=== PATIENT | male | born 1980 ===

== ENCOUNTER 2016-05-06 21:26 | Emergency (ER) | payer OTHER ==
[2016-05-06 21:37] VITALS: TEMP 98.3
[2016-05-06] MEDS ORDERED: Sodium Chloride 0.9% 1,000 ML IV ONE (21:48)
--- NOTE | 2016-05-06 21:51 | C.PDOC ---
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 the pt says he has had cough and congestion for the last few days and was feeling hot at dinner- his son took his temp and it was 100.6. his says he was sitting at the table and was very sweaty and then he had an episode of full body shaking for 30 sec to a minute and slumped against the wall. after the shaking was over he was confused at first until ems arrived then he slowly improved and now is back to normal. he denies any pmh, denies illicit drugs, drinks etoh rarely. denies meds. nkda. Time Seen by Provider: 05/06/16 21:37 Chief Complaint (Nursing): Syncope Past Medical History Vital Signs: Last Vital Signs Temp 98.3 F 05/06/16 21:33 Pulse 60 05/06/16 21:33 Resp 16 05/06/16 21:33 BP 121/56 L 05/06/16 21:33 Pulse Ox 97 05/06/16 22:49 Family History: States: Diabetes - Social History Hx Alcohol Use: No Hx Substance Use: No - Immunization History Hx Tetanus Toxoid Vaccination: No Hx Influenza Vaccination: No Hx Pneumococcal Vaccination: No Review Of Systems Constitutional: Positive for: Fever, Malaise Eyes: Negative for: Vision Change Cardiovascular: Negative for: Chest Pain Respiratory: Positive for: Cough. Negative for: Shortness of Breath, Hemoptysis Gastrointestinal: Negative for: Nausea, Vomiting, Abdominal Pain, Diarrhea Neurological: Negative for: Weakness, Numbness, Headache Physical Exam - Physical Exam Appears: Non-toxic, No Acute Distress Skin: Warm, Dry Head: Atraumatic Eye(s): bilateral: PERRL, EOMI Oral Mucosa: Moist Tongue: No Swelling, No Laceration Lips: No Swelling Neck: Normal ROM Cardiovascular: Rhythm Regular, No Murmur Respiratory: No Decreased Breath Sounds, No Accessory Muscle Use, No Rales, No Rhonchi, No Wheezing Gastrointestinal/Abdominal: Soft, No Tenderness Extremity: No Swelling Pulses: Left Radial: Normal, Right Radial: Normal Neurological/Psych: Oriented x3, Normal Cranial Nerves, No Cerebellar Signs, Normal Motor, Normal Sensation, Other (no focal deficits) ED Course And Treatment - Laboratory Results Result Diagrams: 05/06/16 21:58 05/06/16 21:58 O2 Sat by Pulse Oximetry: 97 Medical Decision Making Medical Decision Making: the pt remained free of any seizure in the ED. he was ambulatory with steady gait, normal neuro exam, neg head CT. he is comfortable w plan for dc and understands he needs to f/u on sunday w a primary doctor and with a neurologist as soon as possible. he understands he should not drive until cleared by neurology. Disposition - Disposition Referrals: Reynaldo Gross MD [Staff Provider] - Disposition: HOME/ ROUTINE Disposition Time: 22:48 Condition: STABLE Additional Instructions: Please follow up with your doctor on Sunday and with a neurologist as soon as possible. Do not drive until your are cleared by a neurologist. Do not do any activites that may result in injury if you have another seizure, such as climbing ladders or swimming alone. Return to the ER for any worsening symptoms or for any other concerns. Instructions: Influenza (ED), New-Onset Seizure in Adults (ED) Forms: Work Excuse - Clinical Impression Clinical Impression: Influenza B, Seizure-like activity
[2016-05-06 22:01] LABS: BASO % 0.5 % (0.0-2.0); EOS % 0.8 % (0.0-4.0); HEMATOCRIT 40.1 % (35.0-51.0); LYMPH # 1.1 K/uL (1.0-4.3); LYMPH % 21.4 % (20.0-40.0); MEAN CELL VOLUME 83.1 fL (80.0-94.0); MEAN CORPUSCULAR HEMOGLOBIN 28.3 pg (27.0-31.0); MEAN PLATELET VOLUME 6.9 fL (7.2-11.7); MONO # 0.5 K/uL (0.0-0.8); MONO % 10.5 % (0.0-10.0); RED CELL DISTRIBUTION WIDTH 12.2 % (11.5-14.5)
[2016-05-06 22:09] LABS: CHLORIDE 99 mmol/L (98-107); POTASSIUM 3.7 mmol/L (3.6-5.2); SODIUM 134 mmol/L (132-148)
[2016-05-06 22:11] LABS: BILIRUBIN,TOTAL 0.3 mg/dL (0.2-1.3); GFR AFRICAN-AMERICAN > 60
[2016-05-06 22:12] LABS: ALB/GLOB RATIO 1.4 (1.0-2.1); ALKALINE PHOSPHATASE 55 U/L (38-126); ALT/SGPT 21 U/L (21-72); AST/SGOT 20 U/L (17-59); BLOOD UREA NITROGEN 8 mg/dL (9-20); CARBON DIOXIDE 23 mmol/L (22-30); GLUCOSE,RANDOM 173 mg/dL (75-110); TOTAL PROTEIN 5.9 g/dL (6.3-8.3)
[2016-05-06 22:13] LABS: CALCIUM 6.9 mg/dl (8.6-10.4)
[2016-05-06 22:36] LABS: RBC URINE < 1 /hpf (0-3); URINE BACTERIA RARE (<OCC); URINE BILIRUBIN NEGATIVE (NEGATIVE); URINE BLOOD NEGATIVE (NEGATIVE); URINE COLOR Yellow (YELLOW); URINE GLUCOSE (UA) 1+ mg/dL (Normal); URINE KETONE TRACE mg/dL (NEGATIVE); URINE LEUKOCYTE ESTERASE NEG Leu/uL (Negative); URINE PROTEIN 1+ mg/dL (NEGATIVE); WBC URINE 8 /hpf (0-5)
[2016-05-07 00:16] VITALS: BP 126/80; PULSE 74; RESP 20; O2SAT 100
--- NOTE | 2016-05-07 08:41 | CT ---
PROCEDURE: CT HEAD WITHOUT CONTRAST. HISTORY: seizure COMPARISON: None available. TECHNIQUE: Axial computed tomography images were obtained through the head/brain without intravenous contrast. Radiation dose: Total exam DLP = 913.34 mGy-cm. FINDINGS: HEMORRHAGE: No intracranial hemorrhage. BRAIN: No mass effect or edema. No atrophy or chronic microvascular ischemic changes. VENTRICLES: Unremarkable. No hydrocephalus. CALVARIUM: Unremarkable. PARANASAL SINUSES: Chronic ethmoid sinusitis MASTOID AIR CELLS: Unremarkable as visualized. No inflammatory changes. OTHER FINDINGS: None. IMPRESSION: No intracranial mass, hemorrhage or evidence of acute infarct. Chronic ethmoid sinusitis noted. Preliminary interpretation of this examination was reported by [facility] at 10:24 p.m. on 05/06/2016. There is concurrence of this report with the preliminary interpretation.
--- NOTE | 2016-05-07 13:42 | RAD ---
HISTORY: cough fever COMPARISON: No prior. FINDINGS: LUNGS: No active pulmonary disease. PLEURA: No significant pleural effusion identified, no pneumothorax apparent. CARDIOVASCULAR: Normal. OSSEOUS STRUCTURES: No significant abnormalities. VISUALIZED UPPER ABDOMEN: Normal. OTHER FINDINGS: None. IMPRESSION: No active disease.
== END 2016-05-07 00:14 | disposition home or self-care (01) ==
LOC: C.ER 21:26
DX: J10.1 Influenza due to other identified influenza virus with other respiratory manifestations (principal)
CPT/HCPCS: 70450; 71010; 80053; 81001; 85025; 87804; 93005; 99285; J7040